=== PATIENT | female | born 1935 | race Caucasian/White ===

== ENCOUNTER 2018-01-01 14:58 | Observation (INO) ==
[2018-01-01 15:37] LABS: Eosinophils # 0.1 10*3/uL (0.0-0.87); Eosinophils % 1.6 % (0.00-10.9); Hematocrit 39.2 VOL% (35.7-47.0); Hemoglobin 12.8 GM/DL (12.0-16.0); Immature Granulocytes % 0.3 %; Immature Granulocytes Absolute 0.01 #; Lymphocytes # 1.5 10*3/uL (1.4-4.0); Lymphocytes % 47.8 % (21.3-54.2); Mean Corpuscular HGB Conc 32.7 GM/DL (32-36); Mean Corpuscular Hemoglobin 31 PG (27-34); Mean Corpuscular Volume 95.8 FL (87-102); Mean Platelet Volume 11.1 FL (9.6-12.0); Monocytes # 0.6 10*3/uL (0.11-0.8); Monocytes % 19.6 % (1.7-12.7); Neutrophils # 0.9 10*3/uL (1.4-7.4); Neutrophils % 29.7 % (38.7-73.9); Platelet Count 162 T/CUMM (130-400); Red Blood Count 4.09 MC/CUMM (3.8-5.5); Red Cell Distribution Width 12.8 % (9.3-17.3); White Blood Count 3.1 T/CUMM (4-12)
[2018-01-01 15:56] LABS: Calcium 9.3 MG/DL (8.5-10.1)
[2018-01-01 15:59] LABS: Band Neutrophils 4 % (0-10); Eosinophils 3 % (0-10); Lymphocytes 44 % (20-55); Platelet Estimate Normal; Segmented Neutrophils 30 % (50-85); Total Cells Counted 100
[2018-01-01] MEDS ORDERED: ACETAMINOPHEN 325 MG TABLET PO PRN (17:59)
[2018-01-01] MEDS ORDERED: ONDANSETRON 4 MG/2 ML VIAL IV PRN (17:59)
[2018-01-01] MEDS ORDERED: ALUM/MAG/SIMETH/LIDO VISC 1:1 30 ML BOTTLE PO PRN (18:04)
[2018-01-01] MEDS ORDERED: POTASSIUM CHLORIDE 20 MEQ TABLET PO PRN (18:04)
[2018-01-01] MEDS ORDERED: MAGNESIUM SULF RIDER 2 GM in PREMIX 1 EACH IV PRN (18:04)
[2018-01-01] MEDS ORDERED: ENOXAPARIN 30 MG/0.3 ML SYRINGE SUBCUT SCH (21:00)
[2018-01-01] MEDS: CETIRIZINE 10 MG TABLET PO SCH (22:36)
[2018-01-01] MEDS: MULTIVITAMIN (BEROCCA) TABLET PO SCH (22:36)
[2018-01-01] MEDS: MAGNESIUM OXIDE 400 MG TABLET PO SCH (22:36)
[2018-01-01] MEDS: ATORVASTATIN 40 MG TABLET PO SCH (22:36)
[2018-01-01] MEDS: GLUCOSAMINE 500 MG TABLET PO SCH (22:36)
[2018-01-01] MEDS: acetaZOLAMIDE 250 MG TABLET PO SCH (22:36)
[2018-01-01] MEDS: MULTIVITAMIN (OCUVITE) TABLET PO SCH (22:36)
[2018-01-01] MEDS: CALCIUM (CARBONATE)/VITAMIN D 600 MG-400 UNIT TABLET PO SCH (22:36)
[2018-01-02] MEDS: NITROGLYCERIN 2% OINT 1 INCH/GM PACK TOP SCH ×3 (00:52→14:46)
[2018-01-02 04:23] LABS: Basophils % 0.9 % (0.0-0.8); Eosinophils # 0.1 10*3/uL (0.0-0.87); Eosinophils % 2.6 % (0.00-10.9); Hematocrit 37.7 VOL% (35.7-47.0); Hemoglobin 12.5 GM/DL (12.0-16.0); Lymphocytes # 1.2 10*3/uL (1.4-4.0); Lymphocytes % 50.2 % (21.3-54.2); Mean Corpuscular HGB Conc 33.2 GM/DL (32-36); Mean Corpuscular Hemoglobin 32 PG (27-34); Mean Corpuscular Volume 95.7 FL (87-102); Mean Platelet Volume 11.1 FL (9.6-12.0); Monocytes # 0.5 10*3/uL (0.11-0.8); Monocytes % 22.1 % (1.7-12.7); Neutrophils # 0.6 10*3/uL (1.4-7.4); Neutrophils % 24.2 % (38.7-73.9); Platelet Count 146 T/CUMM (130-400); Red Blood Count 3.94 MC/CUMM (3.8-5.5); Red Cell Distribution Width 12.8 % (9.3-17.3); White Blood Count 2.4 T/CUMM (4-12)
[2018-01-02 05:09] LABS: Calcium 9.4 MG/DL (8.5-10.1); Osmolality,Calculated 290.7 MOS/KG (273-304); Potassium 3.8 MMOL/L (3.5-5.1)
[2018-01-02 05:19] LABS: Eosinophils 1 % (0-10); Lymphocytes 58 % (20-55); Myelocytes 1 %; Platelet Estimate Decreased; Segmented Neutrophils 27 % (50-85); Total Cells Counted 100
[2018-01-02] MEDS ORDERED: diphenhydrAMINE CAP 25 MG CAPSULE PO ONE (08:20)
[2018-01-02] MEDS ORDERED: MAGNESIUM SULF RIDER 2 GM in PREMIX 1 EACH IV PRN (08:20)
[2018-01-02] MEDS ORDERED: POTASSIUM CHLORIDE RIDER 10 MEQ in PREMIX 1 EACH IV PRN (08:20)
[2018-01-02] MEDS ORDERED: DIAZEPAM 5 MG TABLET PO ONE (08:20)
[2018-01-02] MEDS ORDERED: ASPIRIN EC 81 MG TABLET PO SCH (09:00)
[2018-01-02] MEDS: SODIUM CHLORIDE 0.9% 1,000 ML IV SCH ×2 (09:45→19:15)
[2018-01-02] MEDS: COENZYME Q10 100 MG CAPSULE PO SCH (10:02)
[2018-01-02] MEDS: NON-FORMULARY MEDICATION (Cranberry Fruit Extract [Cranberry] 500 MG) PO SCH (10:02)
[2018-01-02] MEDS: GLUCOSAMINE 500 MG TABLET PO SCH ×2 (10:03→21:19)
[2018-01-02] MEDS: OMEGA 3 ACID ETHYL ESTERS 1 GM CAPSULE PO SCH (10:03)
[2018-01-02] MEDS ORDERED: HEPARIN/NACL 0.9% 2 UNITS/ML 1,000 ML IV ONE (11:59)
[2018-01-02] MEDS: ASPIRIN 325 MG TABLET PO SCH (14:31)
[2018-01-02] MEDS: amLODIPine 5 MG TABLET PO SCH (14:32)
[2018-01-02] MEDS: CLOPIDOGREL 75 MG TABLET PO SCH (14:32)
[2018-01-02] MEDS: PANTOPRAZOLE 40 MG TABLET PO SCH (14:32)
[2018-01-02] MEDS ORDERED: MIDAZOLAM 2 MG/2 ML VIAL ONE (15:04)
[2018-01-02] MEDS ORDERED: LIDOCAINE 1% 20 ML VIAL ONE (15:04)
[2018-01-02] MEDS ORDERED: fentaNYL 100 MCG/2 ML VIAL ONE (15:04)
[2018-01-02] MEDS ORDERED: SODIUM BICARBONATE 2.4 MEQ/5 ML VIAL ONE (15:07)
[2018-01-02] MEDS ORDERED: MORPHINE 4 MG/1 ML VIAL IV PRN (15:38)
[2018-01-02] MEDS ORDERED: NITROGLYCERIN SL 0.4 MG TABLET SL PRN (15:38)
[2018-01-02] MEDS ORDERED: ACETAMINOPHEN/CODEINE 300-30 MG TABLET PO PRN (15:38)
[2018-01-02] MEDS: MAGNESIUM OXIDE 400 MG TABLET PO SCH (21:19)
[2018-01-02] MEDS: MULTIVITAMIN (OCUVITE) TABLET PO SCH (21:19)
[2018-01-02] MEDS: CETIRIZINE 10 MG TABLET PO SCH (21:19)
[2018-01-02] MEDS: ATORVASTATIN 40 MG TABLET PO SCH (21:19)
[2018-01-02] MEDS: CALCIUM (CARBONATE)/VITAMIN D 600 MG-400 UNIT TABLET PO SCH (21:19)
[2018-01-02] MEDS: MULTIVITAMIN (BEROCCA) TABLET PO SCH (21:19)
[2018-01-02] MEDS: acetaZOLAMIDE 250 MG TABLET PO SCH (21:19)
[2018-01-03] MEDS: SODIUM CHLORIDE 0.9% 1,000 ML IV SCH ×3 (02:26→21:14)
[2018-01-03 04:25] LABS: Basophils % 0.6 % (0.0-0.8); Eosinophils # 0.1 10*3/uL (0.0-0.87); Eosinophils % 1.7 % (0.00-10.9); Hematocrit 39.4 VOL% (35.7-47.0); Hemoglobin 12.8 GM/DL (12.0-16.0); Immature Granulocytes % 0.3 %; Immature Granulocytes Absolute 0.01 #; Lymphocytes # 1.3 10*3/uL (1.4-4.0); Lymphocytes % 36.7 % (21.3-54.2); Mean Corpuscular HGB Conc 32.5 GM/DL (32-36); Mean Corpuscular Hemoglobin 31 PG (27-34); Mean Corpuscular Volume 95.9 FL (87-102); Mean Platelet Volume 10.9 FL (9.6-12.0); Monocytes # 0.6 10*3/uL (0.11-0.8); Monocytes % 17.8 % (1.7-12.7); Neutrophils # 1.6 10*3/uL (1.4-7.4); Neutrophils % 42.9 % (38.7-73.9); Platelet Count 144 T/CUMM (130-400); Red Blood Count 4.11 MC/CUMM (3.8-5.5); Red Cell Distribution Width 12.7 % (9.3-17.3); White Blood Count 3.6 T/CUMM (4-12)
[2018-01-03 04:48] LABS: Calcium 8.8 MG/DL (8.5-10.1); Potassium 3.8 MMOL/L (3.5-5.1)
[2018-01-03 05:03] LABS: Eosinophils 1 % (0-10); Lymphocytes 45 % (20-55); Metamyelocytes 1 %; Platelet Estimate Decreased; Polychromasia Few; Segmented Neutrophils 49 % (50-85); Total Cells Counted 100
[2018-01-03 05:04] LABS: Risk Ratio 2.22; VLDL CHOLESTEROL 22.4 MG/DL
[2018-01-03] MEDS: COENZYME Q10 100 MG CAPSULE PO SCH (09:51)
[2018-01-03] MEDS: OMEGA 3 ACID ETHYL ESTERS 1 GM CAPSULE PO SCH (09:51)
[2018-01-03] MEDS: GLUCOSAMINE 500 MG TABLET PO SCH ×2 (09:51→21:10)
[2018-01-03] MEDS: CLOPIDOGREL 75 MG TABLET PO SCH (09:51)
[2018-01-03] MEDS: ASPIRIN 325 MG TABLET PO SCH (09:51)
[2018-01-03] MEDS: PANTOPRAZOLE 40 MG TABLET PO SCH (09:52)
[2018-01-03] MEDS: amLODIPine 5 MG TABLET PO SCH (09:56)
[2018-01-03] MEDS: NON-FORMULARY MEDICATION (Cranberry Fruit Extract [Cranberry] 500 MG) PO SCH (10:09)
[2018-01-03] MEDS: ISOSORBIDE MONONITRATE 30 MG TABLET PO SCH (17:13)
[2018-01-03] MEDS ORDERED: IMIPRAMINE 25 MG TABLET PO SCH (21:00)
[2018-01-03] MEDS: acetaZOLAMIDE 250 MG TABLET PO SCH (21:10)
[2018-01-03] MEDS: MAGNESIUM OXIDE 400 MG TABLET PO SCH (21:10)
[2018-01-03] MEDS: CALCIUM (CARBONATE)/VITAMIN D 600 MG-400 UNIT TABLET PO SCH (21:11)
[2018-01-03] MEDS: CETIRIZINE 10 MG TABLET PO SCH (21:11)
[2018-01-03] MEDS: MULTIVITAMIN (OCUVITE) TABLET PO SCH (21:11)
[2018-01-03] MEDS: MULTIVITAMIN (BEROCCA) TABLET PO SCH (21:11)
[2018-01-03] MEDS: ATORVASTATIN 40 MG TABLET PO SCH (21:11)
[2018-01-04 08:15] VITALS: BP 126/58
[2018-01-04] MEDS: OMEGA 3 ACID ETHYL ESTERS 1 GM CAPSULE PO SCH (09:44)
[2018-01-04] MEDS: ASPIRIN 325 MG TABLET PO SCH (09:44)
[2018-01-04] MEDS: COENZYME Q10 100 MG CAPSULE PO SCH (09:44)
[2018-01-04] MEDS: CLOPIDOGREL 75 MG TABLET PO SCH (09:45)
[2018-01-04] MEDS: amLODIPine 5 MG TABLET PO SCH (09:45)
[2018-01-04] MEDS: ISOSORBIDE MONONITRATE 30 MG TABLET PO SCH (09:45)
[2018-01-04] MEDS: PANTOPRAZOLE 40 MG TABLET PO SCH (09:45)
[2018-01-04] MEDS: GLUCOSAMINE 500 MG TABLET PO SCH (09:45)
[2018-01-04] MEDS: NON-FORMULARY MEDICATION (Cranberry Fruit Extract [Cranberry] 500 MG) PO SCH (09:46)
== END 2018-01-04 11:50 | disposition home or self-care (01) ==
LOC: N.EDINP 14:58 → N.ED 14:58 → N.TELEN 20:01
PROVIDERS: ADMIT Hospitalist; ATTEND Hospitalist
PROC: CLCCHCL (ICD-10-PCS; 2018-01-02 14:45)

== ENCOUNTER 2019-11-05 13:38 | Observation (INO) ==
[2019-11-05] MEDS ORDERED: DILTIAZEM 50 MG/10 ML VIAL IV STA (14:14)
[2019-11-05 14:52] LABS: Basophils % 0.6 % (0.0-0.8); Eosinophils % 0.4 % (0.00-10.9); Hematocrit 39.9 VOL% (35.7-47.0); Hemoglobin 13.6 GM/DL (12.0-16.0); Immature Granulocytes % 0.2 %; Immature Granulocytes Absolute 0.01 #; Lymphocytes # 1.8 10*3/uL (1.4-4.0); Lymphocytes % 36.9 % (21.3-54.2); Mean Corpuscular HGB Conc 34.1 GM/DL (32-36); Mean Corpuscular Volume 94.1 FL (87-102); Mean Platelet Volume 11.2 FL (9.6-12.0); Monocytes % 10.6 % (1.7-12.7); Neutrophils % 51.3 % (38.7-73.9); Platelet Count 222 T/CUMM (130-400); Red Blood Count 4.24 MC/CUMM (3.8-5.5)
[2019-11-05 15:19] LABS: Albumin 3.5 G/DL (3.4-5.0); Bilirubin,Total 1.5 MG/DL (0.2-1.0); Calcium 9.9 MG/DL (8.5-10.1); Osmolality,Calculated 277.5 MOS/KG (273-304); Thyroid Stimulating Hormone 1.67 uIU/ml (0.358-3.74); Total Protein 7.3 G/DL (6.4-8.3)
[2019-11-05] MEDS ORDERED: METOPROLOL TARTRATE 25 MG TABLET PO STA (15:51)
[2019-11-05] MEDS ORDERED: MAGNESIUM SULF RIDER 2 GM in PREMIX 1 EACH IV PRN (15:54)
[2019-11-05] MEDS ORDERED: DEXTROSE 50% 25 GM/50 ML VIAL IV PRN (15:54)
[2019-11-05] MEDS ORDERED: MAGNESIUM SULF RIDER 4 GM in PREMIX 1 EACH IV PRN (15:54)
[2019-11-05] MEDS ORDERED: GLUCAGON 1 MG VIAL IM PRN (15:54)
[2019-11-05] MEDS ORDERED: APIXABAN 5 MG TABLET PO ONE (18:11)
[2019-11-05 20:44] LABS: Troponin I 0.087 NG/ML (0.00-0.045)
[2019-11-05] MEDS ORDERED: APIXABAN 5 MG TABLET PO SCH (21:00)
[2019-11-05] MEDS ORDERED: METOPROLOL TARTRATE 25 MG TABLET PO SCH (21:00)
[2019-11-05] MEDS ORDERED: MAGNESIUM CHLORIDE 64 MG TABLET PO SCH (21:00)
[2019-11-05] MEDS: ISOSORBIDE MONONITRATE 60 MG TABLET PO SCH (21:32)
[2019-11-06 00:08] LABS: Troponin I 0.083 NG/ML (0.00-0.045)
[2019-11-06] MEDS: APIXABAN 5 MG TABLET PO SCH ×2 (00:42→09:31)
[2019-11-06 05:21] LABS: Basophils # 0.1 10*3/uL (0.0-0.2); Basophils % 1.1 % (0.0-0.8); Eosinophils % 0.7 % (0.00-10.9); Hemoglobin 11.6 GM/DL (12.0-16.0); Immature Granulocytes % 0.2 %; Immature Granulocytes Absolute 0.01 #; Lymphocytes # 1.8 10*3/uL (1.4-4.0); Lymphocytes % 38.3 % (21.3-54.2); Mean Corpuscular HGB Conc 33.1 GM/DL (32-36); Mean Corpuscular Volume 96.7 FL (87-102); Mean Platelet Volume 11.1 FL (9.6-12.0); Monocytes % 12.8 % (1.7-12.7); Neutrophils % 46.9 % (38.7-73.9); Platelet Count 196 T/CUMM (130-400); Red Blood Count 3.62 MC/CUMM (3.8-5.5); Red Cell Distribution Width 12.9 % (9.3-17.3); White Blood Count 4.6 T/CUMM (4-12)
[2019-11-06 06:07] LABS: Albumin 3.1 G/DL (3.4-5.0); Bilirubin,Total 1.7 MG/DL (0.2-1.0); Calcium 9.3 MG/DL (8.5-10.1); Osmolality,Calculated 279.4 MOS/KG (273-304); Total Protein 6.2 G/DL (6.4-8.3)
[2019-11-06 07:53] VITALS: BP 139/64
[2019-11-06] MEDS ORDERED: carvediloL 6.25 MG TABLET PO SCH (09:00)
[2019-11-06] MEDS ORDERED: carvediloL 3.125 MG TABLET PO SCH (09:00)
[2019-11-06] MEDS ORDERED: ASPIRIN EC 81 MG TABLET PO SCH (09:00)
[2019-11-06] MEDS: ISOSORBIDE MONONITRATE 60 MG TABLET PO SCH (09:31)
== END 2019-11-06 11:24 | disposition home or self-care (01) ==
LOC: N.ED 13:38 → N.EDINP 13:38 → N.TELES 16:28
PROVIDERS: ADMIT Internal Medicine Cardiovascular Disease; ATTEND Internal Medicine Cardiovascular Disease